=== PATIENT | female | born 1985 | race Caucasian/White ===

== ENCOUNTER 2018-12-06 06:01 | Observation (INO) | payer OTHER ==
--- NOTE | 2018-12-02 12:40 | PREOPHP ---
DATE OF ADMISSION: 12/06/2018 HISTORY OF PRESENT ILLNESS: This is a 33-year-old female, 3, para 2, abortions 1. History o f tubal ligation and history of a left complex ovarian mass for which she was referred to me and a hi story of having a previous surgery for a left ovarian cyst through pelviscope. The patient had this done in 2009 on the same side that she again has a complex ovarian mass. The patient had a history o f two D and C's and two vaginal deliveries, one D and C for a spontaneous . The other D and C was due to placental retention after delivery. She has a history of a hiatal hernia surgery endosc opically. The patient states she has constipation, urinary frequency over 4 times at night and she l oses urine with Valsalva maneuver to the point where she has to wear a pad due to incontinence and ur inary frequency and pelvic pressure. An ultrasound revealed that she has a 4 cm complex left ovarian cyst. REVIEW OF SYSTEMS: Fundoplication endoscopically in 2009. The patient has 2 living children. There is no heart disease. No lung disease. No history of smoking or drinking. No GI problems except fo r fatigue and bloating and pelvic pressure. ALLERGIES: SHE HAS NO ALLERGIES. SOCIAL HISTORY: No history of drugs or alcohol. FAMILY HISTORY: Hypertension, breast cancer, kidney stones. PHYSICAL EXAMINATION: VITAL SIGNS: Stable with a blood pressure of 120/70, pulse is 80, respirations 16. She weighs 167 p ounds. She is 5 feet 2 inches. HEAD AND NECK: Normal. BREASTS: Soft, nontender, no masses. CHEST: Clear. HEART: Normal sinus rhythm. LUNGS: Clear. ABDOMEN: Soft, nontender, no masses. PELVIC: External genitalia with a cystourethrocele grade III and rectocele grade III, hypertrophic u terus and painful bladder and the rectocele. The adnexa are with a painful mobilization, where she p ossibly has an endometrioma. EXTREMITIES: Normal. DIAGNOSES: Pelvic pain, left complex ovarian mass, possible endometrioma, menorrhagia, hypertrophic u terus, possible fibroid, cystourethrocele grade III to IV and rectocele grade III and recurrent UTIs. PLAN: The patient is undergoing a pelviscopic left ovarian cystectomy, possible left oophorectomy an d anterior and posterior repair with a sling and a graft. The patient was given the option of not shay ving a sling versus having a sling with the risks and possible complications of both and possible pro trusion of the sling and recurrent infections as well. She reviewed both pros and cons of both proce dures and she agreed to go ahead with the sling. The patient has been offered for a pelviscopy, left ovarian cystectomy, possible oophorectomy, anterior and posterior repair and sling and graft. She h as been advised of the possible risks and possible complication of the procedure with her alternative s and options. Written information was provided. She had no more questions and agreed to go ahead w ith the procedure with full understanding and no more questions. Dictated By: MAYUR OSBORN/SÁNCHEZ Conf#: [id number] DID#: [id number]
[2018-12-05 17:21] VITALS: BMI 31.5
[2018-12-06] VITALS (34 sets, daily range): BP systolic 91–145; BP diastolic 39–86; PULSE 58–96; RESP 16–64; Ht 157.5 cm; Wt 75.9 kg
[~2018-12-06] VITALS: Ht 157.5 cm; Wt 75.9 kg
[~2018-12-06 06:01] MED LIST: CEFAZOLIN 2 GM/50 ML (PMX) 50 ML IVPB ONE
[2018-12-06] MEDS ORDERED: BUPIVACAINE 0.5%/EPI (SDV) 30 ML INJ ONE ×2 (06:52→09:51)
[2018-12-06] MEDS ORDERED: POLYMYXIN/BACITRACIN 1L IRRIG ONE (06:52)
[2018-12-06] MEDS: LACTATED RINGER'S 1,000 ML IV SCH ×3 (07:25→17:20)
--- NOTE | 2018-12-06 07:32 | PREAC ---
Date/Time of Note Date/Time of Note DATE: 12/06/18 TIME: 07:30 Anesthesia Eval and Record Evaluation Time Pre-Procedure Interview DATE: 12/06/18 TIME: 07:30 Age 33 Sex female NPO: 8 hrs Preoperative diagnosis pelvic pain, Planned procedure Pelviscopy, anterior-posterior repair Past Medical History Past Medical History: Includes Cardio: Dyslipidemia Endo: Diabetes Surgery & Anesthesia Issues No known issue Meds Anticoagulation: No Beta Vignesh within 24 hr: No Reason Beta Vignesh not given: Pt. not on B-Vignesh No Active Prescriptions or Reported Meds Meds reviewed: Yes Allergies Coded Allergies: No Known Allergy (Unverified , 12/04/18) Allergies Reviewed: Yes Labs/Studies Labs Reviewed: Reviewed by anesthesiologist test: Negative Studies: ECG Pre-procedure Exam Last vitals Vital Signs Date Temp Pulse Resp B/P (MAP) Pulse Ox O2 O2 Flow FiO2 Time Delivery Rate 12/06/18 98.1 64 18 126/71 100 Room Air 07:14 (89) Airway: Adequate mouth opening, Adequate thyromental dist Mallampati: Mallampati II Teeth: Normal Lung: Normal Heart: Normal ASA Physical Status ASA physical status: 2 Emergency: None Planned Anesthetic General/MAC: ETT Neuraxial: Spinal Planned Pain Management Sub-arachniod narcotics, Parenteral pain med Pre-operative Attestations Prior to commencing anesthesia and surgery, the patient was re-evaluated, there was verification of: *The patient's identity *The results of appropriate recent lab work and preoperative vital signs *The above evaluation not changing prior to induction *Anesthetic plan, risk benefits, alternative and complications discussed with patient/family; questions answered; patient/family understands, accepts and wishes to proceed. RUSS KAT MD Dec 06, 2018 07:32
--- NOTE | 2018-12-06 07:43 | HPN ---
Date/Time of Note Date/Time of Note DATE: 12/06/18 TIME: 07:43 Interval H&P Admission Note Pt. seen H&P reviewed: No system changes MAYUR PHAN MD Dec 06, 2018 07:43
[2018-12-06] MEDS ORDERED: MIDAZOLAM 1 MG/ML 2 ML INJ ONE (07:45)
[2018-12-06] MEDS ORDERED: FENTAnyl 50 MCG/ML VIAL ONE (07:45)
[2018-12-06] MEDS ORDERED: morphine SULFATE/PF (10 MG/10 ML) INJ ONE (07:48)
[2018-12-06] MEDS ORDERED: ROCURONIUM 50 MG INJ ONE (11:03)
[2018-12-06] MEDS ORDERED: ONDANSETRON 4 MG INJ ONE (11:03)
[2018-12-06] MEDS ORDERED: LIDOCAINE 2% (SDV) 5 ML INJ ONE (11:03)
[2018-12-06] MEDS ORDERED: PROPOFOL 20 ML ONE (11:03)
[2018-12-06] MEDS ORDERED: METOCLOPRAMIDE 10 MG INJ ONE (11:03)
[2018-12-06] MEDS ORDERED: CEFAZOLIN 1 GM INJ ONE (11:03)
--- NOTE | 2018-12-06 11:20 | SIPON ---
Date/Time of Note Date/Time of Note DATE: 12/06/18 TIME: 11:17 Operative Report Preoperative Diagnosis Intractable pelvic pain and bleeding. Left complex ovarian cyst Menorrhagia Fibroid uterus Cystourethrocele grade 3 through 4 Urinary incontinence Rectocele grade 3 Recurrent UTIs and constipation Postoperative Diagnosis Same Operation/Procedure Performed Pelviscopy. Left ovarian cystectomy Left salpingectomy Anterior and posterior colporrhaphy Surgeon see signature line nurse practitioner physician assistant mri ct tech Anesthesia: general Estimated blood loss: 10 - 50 ml's Transfusion Required none Specimen Left ovarian cyst fluid and ovarian cyst wall and left tube and vaginal mucosa Grafts/Implants none Complications none MAYUR PHAN MD Dec 06, 2018 11:20
[2018-12-06] MEDS ORDERED: DIPHENHYDRAMINE 50 MG INJ IV PRN (11:30)
[2018-12-06] MEDS ORDERED: KETOROLAC 30 MG INJ IV PRN (11:30)
[2018-12-06] MEDS ORDERED: FENTAnyl 50 MCG/ML VIAL IV PRN (11:30)
[2018-12-06] MEDS ORDERED: ONDANSETRON 4 MG INJ IV PRN (11:30)
[2018-12-06] MEDS ORDERED: HYDROmorphONE 1 MG/5 ML IV SYRINGE IV PRN ×2 (11:30)
[2018-12-06] MEDS ORDERED: ZOLPIDEM 5 MG TAB PO PRN (11:30)
[2018-12-06] MEDS ORDERED: HYDROCODONE/APAP (5/325) TAB PO PRN ×2 (11:30)
[2018-12-06] MEDS ORDERED: MEPERIDINE 25 MG INJ IV PRN (11:30)
[2018-12-06] MEDS ORDERED: METOCLOPRAMIDE 10 MG INJ IV PRN (11:30)
[2018-12-06] MEDS ORDERED: NALOXONE (0.4 MG/ML) INJ IV PRN (11:30)
[2018-12-06] MEDS ORDERED: DIPHENHYDRAMINE 50 MG CAP PO PRN (11:30)
[2018-12-06] MEDS ORDERED: ONDANSETRON INJ 6 MG in DEXTROSE 5% 50 ML IVPB PRN (11:30)
[2018-12-06] MEDS ORDERED: OXYCODONE/ACETAMINOPHEN (5/325) TAB PO PRN (11:30)
[2018-12-06] MEDS ORDERED: METOCLOPRAMIDE 10 MG TAB PO SCH (12:00)
--- NOTE | 2018-12-06 13:02 | OPR ---
DATE OF OPERATION: 12/06/2018 PROCEDURES: Pelviscopy, left ovarian cystectomy, left salpingectomy, anterior and posterior colporrh aphy. PREOPERATIVE DIAGNOSES: 1. Intractable pelvic pain and abnormal uterine bleeding. 2. Left complex ovarian cyst. 3. Menorrhagia, fibroid uterus. 4. Cystourethrocele grade 3-4. 5. Urinary incontinence. 6. Rectocele grade III. 7. Recurrent urinary tract infections and constipation. POSTOPERATIVE DIAGNOSES: 1. Intractable pelvic pain and abnormal uterine bleeding. 2. Left complex ovarian cyst. 3. Menorrhagia, fibroid uterus. 4. Cystourethrocele grade 3-4. 5. Urinary incontinence. 6. Rectocele grade III. 7. Recurrent urinary tract infections and constipation. SURGEON: Mayur Johnson MD SALON PROFESSIONAL: business office technician. ANESTHESIA: Dr. Simms. Estimated blood LOSS: 15 mL. DESCRIPTION OF PROCEDURE: The patient was given general anesthesia, placed in the lithotomy position . The perineal and vaginal area and abdomen were prepped and draped. A HUMI was inserted in the [facility] for manipulation. A small incision was made on the inferior edge of the umbilicus and the layers were opened and the [place] was inserted, the CO2 was inflated. The second trocar and cannula with a 5 mm trocar was placed suprapubically and over the left side 5 cm below the umbilicus lateral cod clerk ally to the rectus muscle. The visualization of the pelvic organs revealed that the uterus was third degree retroverted with early fibroids. Both ovaries were normal. The left ovary had a cyst in the corner of the left ovary that was attached to the left tube. The adnexa was free in both sides. Th e gyrus was used to first aspirate the fluid from the cyst on the left ovary and then burn the wall o f the cyst. A piece of the wall was removed. The rest of the cyst was burned out. The mesosalpinx on the left tube was also burned, cut and removed. The left tube was removed with burning and cuttin g of the mesosalpinx. There were a couple of marilyn from previous tubal ligation that were removed. The cavity was observed under water. There was no active bleeding. The procedure was finished by removing all the gas and the gas was insufflated of the abdomen and the incisions were closed with an 0 Vicryl for the fascia, 3-0 Monocryl subcuticular to all 3 incisions. Marcaine solution was insert ed in all 3 incisions for pain control and Dermabond was also used in the incisions. At this time, t he patient was placed in the lithotomy position. We were regowned and the vaginal speculum was appli ed and the vertical incision was made 2 cm below the urethral meatus all the way up to the cervix and the separation of the vaginal mucosa from the bladder was done injecting Marcaine solution and Metze nbaums were used and digital dissection to separate the bladder from the anterior vaginal mucosa. Th e bladder was plicated in the fundus area with a 2-0 Vicryl suture and a pursestring suture and also with interrupted sutures with 2-0 Vicryl. The Denise stitch was applied with a 2-0 Vicryl as well and lifting the UV junction and the procedure was finished by trimming the vaginal mucosa, and the vagin al mucosa was closed with interrupted sutures with 2-[address] down vertically to the cerv ix. At this time, a triangular incision was made at the perineum. The same thing was done. The inj ection of the Marcaine solution was done posteriorly all the way to about 5 cm up the vaginal canal a nd the rectocele was from the posterior vaginal mucosa. The rectocele was reduced with int errupted sutures with 2-0 Vicryl. The vagina was trimmed and closed with interrupted sutures all the way to the perineum. There were a couple of inclusion cysts in the vagina that were removed and sut ures were placed to aid for control of hemostasis, one in the left side, one in the right side. At t his time, the perineum was closed with the levator ani stitch with a #1 Vicryl that lifted the perine um and the superficial area were closed as a regular episiotomy with 2-0 Vicryl and 3-0 Vicryl. The Xeroform gauze was left in the vagina for pressure. The patient tolerated the procedure well and lef t the OR awake and stable. Sponge counts and instrument counts were correct. Intravenous antibiotic s were given for prophylaxis. Blood loss was minimal and the urine was clear at the end of the proce dure. The Hall catheter was left in. Dictated By: MAYUR OSBORN/SÁNCHEZ Conf#: [id number] DID#: [id number]
--- NOTE | 2018-12-06 13:05 | RADRPT ---
Vent Rate: 64 bpm RR Interval: 940 msec AK Interval: 114 msec QRS Duration: 68 msec QT Interval: 390 msec QTC Interval: 402 msec P-R-T State Road: 27 - 55 - 29 degrees Sinus rhythm...normal P axis, V-rate 50- 99 Electronically Signed By: Derian Mchugh
[2018-12-06] MEDS: KETOROLAC 30 MG INJ IV SCH ×3 (13:28→23:50)
[2018-12-06] MEDS ORDERED: CEFAZOLIN 1 GM/50 ML (PMX) 50 ML IVPB SCH (14:00)
[2018-12-06] MEDS: CEFAZOLIN 2 GM/50 ML (PMX) 50 ML IVPB SCH ×2 (16:50→23:10)
[2018-12-06] MEDS: METOCLOPRAMIDE 10 MG INJ IV SCH (17:37)
[2018-12-07] MEDS: METOCLOPRAMIDE 10 MG INJ IV SCH ×4 (00:05→17:49)
[2018-12-07 00:31] VITALS: BP 116/64; PULSE 72; RESP 18
[2018-12-07] MEDS: LACTATED RINGER'S 1,000 ML IV SCH ×3 (03:20→10:48)
[2018-12-07] MEDS: CEFAZOLIN 2 GM/50 ML (PMX) 50 ML IVPB SCH (05:43)
[2018-12-07] MEDS: KETOROLAC 30 MG INJ IV SCH ×3 (05:47→17:48)
[2018-12-07 07:38] VITALS: BP 111/63; PULSE 65; RESP 18
--- NOTE | 2018-12-07 10:41 | PD.PPDC ---
CONTINUOUS TOWEL ROLLER Discharge Instruction Condition [id number] Patient Condition: Zcrek2u Good Diet [id number] Diet: Nezif8u Resume Regular Diet Activity/Restrictions [id number] Activity: Pvwcr0e Normal Activity May Shower [id number] Restrictions: Qpanl6m No Exercising No Lifting No Driving No Sexual Activity Nothing in the Vagina No Point Blank No Tampons, douche Wound/Drain Care Instructions [id number] Wound/Drain Care Instructions: Wustl1l Wash with soap and water Keep clean and dry Follow-up Follow-up with Physician: 1, Week/Weeks Return to clinic for [id number] DIGITAL MEDIA DIRECTOR Instructions: Solhl7z Fever greater than 101 Chills Worsening abdominal pain Excessive Vaginal Bleeding More than 2 pads per hour Unable to tolerate diet [id number] Surgical Instructions: Klaee8h Incisional Drainage Incisional Redness MAYUR PHAN MD Dec 07, 2018 10:41
--- NOTE | 2018-12-07 10:51 | DS ---
Date/Time of Note Date/Time of Note DATE: 12/07/18 TIME: 10:42 Discharge Summary Admission/Discharge Info Admit Date/Time Dec 06, 2018 at 11:17 Discharge Date/Time December 07, 2018 Discharge Diagnosis Intractable pelvic pain,left lower quadrant ,endometriosis and complex left ovarian mass fibroid uterus. Fibroid uterus. Abnormal uterine bleeding Pelvic prolapse urinary incontinence. Constipation Cystourethrocele and rectocele Patient Condition: Good Procedures Pelviscopic left ovarian cystectomy and salpingectomy. Anterior and posterior colporrhaphy Hx of Present Illness 33 years old female multigravida with a history of tubal ligation and left complex ovarian cyst with intractable pelvic pain and bleeding. An ultrasound observed a complex cyst on the left side and possible fibroid uterus. Possible endometriosis The patient also had pelvic pressure pelvic pain loss of urine with Valsalva maneuver and constipation Hospital Course The patient underwent a pelviscopic left ovarian cystectomyLeft salpingectomy and anterior and posterior colporrhaphy. It was noted that the uterus was prolapse grade 3 with the cervix very close to the introitus uterus retroverted with adenomyosis fibroid uterus. A left complex mass was seen on the left adnexa which was removed along with the left tube that was very reddish and involved with a cyst. She did well post op we kept her in observation and we put a vaginal gauze and a Hall catheter to go home with due to the anterior colporrhaphy. The vaginal packing was removed this morning with no active bleeding. She is afebrile, anemic as she is used to anemia due to her history of abnormal bleeding she does not have any symptoms. She is having some pain on the incisional area. She will be observed today again until this evening make sure she is passing gases and tolerating diet. She will go home with a Hall catheter and pain medication To be seen in a week to remove the catheter. Patient was explained about what to do at home. She was given the information about emergency situations and how to reach me and come to the office as soon as possible or the nearest emergency room. She understands and she is reliable. She is stable to go home but we will wait until this evening until she is more awake and more ambulatory and passing gases Home Meds No Active Prescriptions or Reported Meds Follow-up Plan 1 week Primary Care Provider Not On Staff Doctor Time spent on discharge: < 30 minutes Pending Labs Laboratory Tests Test 12/07/18 04:41 12/07/18 07:14 White Blood Count 8.7 10^3/ul (4.8-10.8) Red Blood Count 3.21 10^6/ul (4.20-5.40) Hemoglobin 10.3 g/dl (12.0-16.0) Hematocrit 31.3 % (37.0-47.0) Mean Corpuscular Volume 97.5 fl (82.0-101.0) Mean Corpuscular Hemoglobin 32.1 pg (29.0-33.0) Mean Corpuscular 32.9 g/dl (32.0-37.0) Hemoglobin Concent Red Cell Distribution Width 12.3 % (11.5-14.5) Platelet Count 201 10^3/UL (140-415) Mean Platelet Volume 12.4 fl (7.4-10.4) Immature Granulocytes % 0.300 % (0.001-0.429) Neutrophils % 63.3 % (39.0-77.0) Lymphocytes % 26.0 % (15.0-51.0) Monocytes % 8.4 % (0.0-11.0) Eosinophils % 1.7 % (0.0-7.0) Basophils % 0.3 % (0.0-2.0) Nucleated Red Blood Cells % 0.0 /100WBC (0.0-0.0) Immature Granulocytes # 0.030 10^3/ul (0.0-0.031) Neutrophils # 5.5 10^3/ul (1.6-7.5) Lymphocytes # 2.3 10^3/ul (0.8-2.9) Monocytes # 0.7 10^3/ul (0.3-0.9) Eosinophils # 0.2 10^3/ul (0.0-0.5) Basophils # 0.0 10^3/ul (0.0-0.1) Nucleated Red Blood Cells # 0.0 10^3/ul (0.0-0.0) Sodium Level 141 mmol/L (135-144) Potassium Level 4.0 mmol/L (3.5-5.1) Chloride Level 108 mmol/L (97-110) Carbon Dioxide Level 28 mmol/L (21-31) Anion Gap 5 (5-13) Blood Urea Nitrogen 9 mg/dl (7-20) Creatinine 0.82 mg/dl (0.44-1.00) Lab Scanned Report REFERENCE LAB [id number] MAYUR PHAN MD Dec 07, 2018 10:51
[2018-12-07 14:13] VITALS: BP 128/69; PULSE 79; RESP 18
[2018-12-07 20:39] VITALS: BP 122/71; PULSE 78; RESP 20
--- NOTE | 2018-12-08 14:50 | PAC ---
Date/Time of Note Date/Time of Note DATE: 12/08/18 TIME: 14:50 Post-Anesthesia Notes Post-Anesthesia Note Last documented vital signs Vital Signs Date Temp Pulse Resp B/P (MAP) Pulse Ox O2 O2 Flow FiO2 Time Delivery Rate 12/07/18 98.6 78 20 122/71 98 20:39 (88) 12/07/18 Room Air 00:31 Activity: WNL Respiratory function: WNL Cardiovascular function: WNL Mental status: Baseline Pain reasonably controlled: Yes Hydration appropriate: Yes Nausea/Vomiting absent: Yes Comments BP:124/67, P:67, Spo2:100%, T:98,8 RUSS KAT MD Dec 08, 2018 14:50
== END 2018-12-07 20:54 | disposition home or self-care (01) ==
LOC: SDS 06:01 → EDSTATUS 07:30 → REC 11:17 → SDS 11:17 → MS1 17:07
PROVIDERS: ADMIT Obstetrics & Gynecology; ATTEND Obstetrics & Gynecology
DX: N83.202 Unspecified ovarian cyst, left side (principal); N80.1 Endometriosis of ovary; N93.9 Abnormal uterine and vaginal bleeding, unspecified; R32 Unspecified urinary incontinence; N81.6 Rectocele; N81.10 Cystocele, unspecified; N73.6 Female pelvic peritoneal adhesions (postinfective); N39.0 Urinary tract infection, site not specified; K59.00 Constipation, unspecified; N92.0 Excessive and frequent menstruation with regular cycle; D25.9 Leiomyoma of uterus, unspecified
CPT/HCPCS: 57260; 58661; 58662; 80051; 82565; 84520; 85025; 86850; 86900; 86901; 87086; 88104; 88305; 93005; J0690; J1885; J2175; J2250; J2274; J2405; J2765; J3010; J7120; Z7500; Z7512; Z7610; G0378